=== PATIENT | female | born 1980 | race Caucasian/White ===

== ENCOUNTER 2021-06-23 09:42 | Outpatient (REF) | payer OTHER, SELFPAY ==
[2021-06-23 10:58] LABS: MANUAL DIFF FLAG NO
[2021-06-23 11:01] LABS: Basophils Percent Auto 1.1 % (0-2); Eosinophils Absolute Auto 0.1 X10*3/uL (0.0-0.4); Eosinophils Percent Auto 2.1 % (0-4); Hematocrit 25.8 % (37-47); Imm Gran Abs Auto 0.01 X10*3/uL (0.00-0.03); Imm Gran Pct Auto 0.3 % (0.0-0.4); Lymphocytes Absolute Auto 1.3 X10*3/uL (1.2-4.9); Lymphocytes Percent Auto 33.6 % (20-40); Mean Corpuscular HGB Conc 26.4 g/dl (31.0-35.0); Monocytes Absolute Auto 0.3 X10*3/uL (0.1-1.2); Monocytes Percent Auto 7.7 % (2-11); Neutrophils Absolute Auto 2.1 X10*3/uL (2.0-8.3); Neutrophils Percent Auto 55.2 % (45-73); Platelet Count 312 X10*3/uL (160-400); Red Blood Count 3.99 X10*6/uL (4.20-5.50); Red Cell Distribution Width 20.1 % (11.0-16.0); White Blood Count 3.8 X10*3/uL (4.8-10.8)
[2021-06-23 11:06] LABS: Mean Corpuscular Volume 64.7 fL (80-98)
[2021-06-23 11:16] LABS: Hemoglobin 6.8 g/dl (12.0-16.0)
[2021-06-23 11:59] LABS: Alanine Aminotransferase 13 U/L (0-31); Albumin Level 4.2 g/dL (3.5-5.0); Alkaline Phosphatase 50 U/L (39-117); Anion Gap 10 (12-20); Aspartate Amino Transferase 23 U/L (5-31); Bilirubin Total 0.3 mg/dL (0.0-1.0); Blood Urea Nitrogen 11 mg/dL (9-16); Calcium 9.1 mg/dL (8.4-10.2); Carbon Dioxide 24 mmol/L (22-29); Chloride 111 mmol/L (96-108); Cholesterol 149 mg/dL; Estimated Glomerular Filt Rate > 60; Glucose Fasting 85 mg/dL (60-99); HDL Cholesterol 64 mg/dL; LDL Cholesterol Calculated 75 mg/dl; Potassium 4.4 mmol/L (3.3-5.1); Sodium 141 mmol/L (135-145); Total Protein 6.8 g/dL (6.5-8.0); Triglycerides 54 mg/dL
== END 2021-06-23 09:43 | disposition home or self-care (01) ==
LOC: HO.MANLDS 09:42
PROVIDERS: PCP Physician Assistant; Visit Provider Physician Assistant
DX: Z00.00 Encounter for general adult medical examination without abnormal findings (principal)
CPT/HCPCS: 36415; 80053; 80061; 85025

== ENCOUNTER 2021-06-23 14:12 | Emergency (ER) | payer OTHER, SELFPAY ==
--- NOTE | 2021-06-23 15:29 | ED.RECABL ---
HPI - Recheck/Abnormal Lab/Rx General Chief Complaint: General Medical Stated Complaint: low blood count Time Seen by Provider: 06/23/21 15:28 Source: patient Mode of arrival: ambulatory Limitations: no limitations History of Present Illness HPI narrative: patient denies symptoms, still gets her periods 5 days no heavy bleeding. No bleeding in stool, stool not black. 9 years ago she was anemic and was placed on iron but she is no longer taking iron. Symptoms since prior visit: no new symptoms Related Data Previous Rx's Medication Instructions Recorded ferrous sulfate 325 mg (65 mg 325 mg PO DAILY #30 tab 06/23/21 iron) tablet,delayed release folic acid 1 mg tablet 1 mg PO DAILY #30 tab 06/23/21 Allergies Allergy/AdvReac Type Severity Reaction Status Date / Time No Known Allergies Allergy Verified 06/23/21 15:36 Review of Systems Constitutional: Constitutional: Reports no additional constitutional complaints Eyes: Eyes: Reports no additional eye complaints ENT: Denies dizziness Cardiovascular: Cardiovascular: Reports no additional cardiovascular complaints Respiratory: Respiratory: Reports as per HPI Gastrointestinal: Gastrointestinal: Reports no additional gastrointestinal complaints Genitourinary: Genitourinary: Reports no additional female genitourinary complaints Musculoskeletal: Musculoskeletal: Reports no additional musculoskeletal complaints Integumentary/Breasts: Skin/Breast: Denies rash Neurologic: Reports system reviewed and no additional complaints, except as documented, Denies dizziness and Denies Sensory deficit (Neuro) Psychiatric: Psychiatric: Denies anxiety [facility] Social History Social History Advance Directives: No Advance Directives Information Provided: No Patient : No Physical Exam Vital Signs: Vital Signs: Last Vital Signs Temp 98.0 F 06/23/21 16:41 Pulse 80 06/23/21 16:41 Resp 18 06/23/21 16:41 BP 124/53 L 06/23/21 16:41 Pulse Ox 100 06/23/21 16:41 Body Mass Index 22.1 Const: General: healthy appearing Nutritional Appearance: average body habitus Orientation/consciousness: oriented to person and patient oriented x3 Limitations: no limitations HENMT: Head: Yes normal to inspection Ears: external ears normal General nose exam: Normal external nose present Mouth: Normal oral and palatal mucosa present and oropharynx normal Throat: Yes posterior oropharynx normal Eyes: General: appearance normal, both eyes and all related structures Neck: Other: supple Neck: Yes normal visual inspection Chest: Chest palpation & inspection: normal inspection of the chest Resp: Auscultation: clear to auscultation bilaterally Cardio: Jugular venous distension: no JVD Rate: regular rate Rhythm: regular rhythm Heart sounds: S1 normal heart sound present and S2 normal heart sound present GI: Inspection: Yes normal to inspection Palpation (GI): Soft to palpation, nontender and No hepatosplenomegaly present Auscultation: normal bowel sounds : Other: rectal heme negative General: Yes no CVA tenderness Back/Spine/Pelvis: Back: no CVA tenderness Skin: Other: pale conjunctiva, well perfused nailbeds General skin exam: no rashes or lesions noted Neuro: General: oriented to person and patient oriented x3 Cranial nerves: Yes CN's II-XII intact bilaterally Motor exam (neuro): 5/5 motor strength present throughout Sensory Exam: No Sensory deficit (Neuro) Extrem: General: Yes normal to inspection Psych: Appearance: grossly normal Course Reevaluation(s) Reevaluation #1: patient looking well, no active GI bleed, likely to have iron deficiency anemia secondary to diet, will dc on iron and folic acid. Patient is completely compensated and not orthostatic. Awaiting repeat blood count Time: 16:38 Discharge Plan Discharge Clinical Impression: Anemia Qualifiers: Anemia type: unspecified type Qualified Code(s): D64.9 - Anemia, unspecified Patient Disposition: Home, Self-Care Instructions: Anemia (ED) Prescriptions: New folic acid 1 mg tablet 1 mg PO DAILY Qty: 30 RF: 0 ferrous sulfate 325 mg (65 mg iron) tablet,delayed release (DR/EC) 325 mg PO DAILY Qty: 30 RF: 0 Referrals: Renetta Oliva PA [Primary Care Provider] - 5 days
[2021-06-23 16:41] VITALS: BP 124/53; PULSE 80; RESP 18; TEMP 36.7; O2SAT 100; BMI 22.1
[2021-06-23 17:04] LABS: MANUAL DIFF FLAG NO
[2021-06-23 17:11] LABS: Basophils Percent Auto 0.8 % (0-2); Eosinophils Absolute Auto 0.1 X10*3/uL (0.0-0.4); Hematocrit 26.2 % (37-47); Imm Gran Abs Auto 0.02 X10*3/uL (0.00-0.03); Imm Gran Pct Auto 0.4 % (0.0-0.4); Lymphocytes Absolute Auto 0.7 X10*3/uL (1.2-4.9); Lymphocytes Percent Auto 14.3 % (20-40); Mean Corpuscular Hemoglobin 16.7 pg (27.0-33.0); Mean Platelet Volume 10.1 fL (9.4-12.3); Monocytes Absolute Auto 0.2 X10*3/uL (0.1-1.2); Monocytes Percent Auto 4.4 % (2-11); Neutrophils Absolute Auto 3.8 X10*3/uL (2.0-8.3); Neutrophils Percent Auto 79.1 % (45-73); Platelet Count 337 X10*3/uL (160-400); Red Blood Count 4.07 X10*6/uL (4.20-5.50); White Blood Count 4.8 X10*3/uL (4.8-10.8)
[2021-06-23 17:18] LABS: Mean Corpuscular Volume 64.4 fL (80-98)
[2021-06-23 17:20] LABS: Hemoglobin 6.8 g/dl (12.0-16.0)
--- NOTE | 2021-06-25 08:31 | MHC.CM.ED ---
Late entry from 06/24/21: received fax request for consult; upon review, pt had already left the ED: no indication from notes re: need for CM consult.
== END 2021-06-23 17:50 | disposition home or self-care (01) ==
PROVIDERS: Emergency Provider Emergency Medicine; PCP Physician Assistant
DX: D64.9 Anemia, unspecified (principal); Z79.899 Other long term (current) drug therapy
CPT/HCPCS: 36415; 85025; 99283; 99284

== ENCOUNTER 2021-07-18 07:43 | Outpatient (REF) | payer OTHER, SELFPAY ==
[2021-07-18 09:28] LABS: Hematocrit 29.4 % (37.0-47.0); Hemoglobin 7.7 g/dl (12.0-16.0); Mean Corpuscular HGB Conc 26.2 g/dl (31.0-35.0); Mean Corpuscular Hemoglobin 17.9 pg (27.0-33.0); Mean Corpuscular Volume 68.4 fL (80.0-98.0); Mean Platelet Volume 10.5 fL (9.4-12.3); NRBC Pct Auto 0.3 /100WBC (0.0-0.2); Platelet Count 295 X10*3/uL (160-400); Red Cell Distribution Width 24.3 % (11.0-16.0); White Blood Count 5.8 X10*3/uL (4.8-10.8)
== END 2021-07-18 07:44 | disposition home or self-care (01) ==
LOC: HO.MDS 07:43
PROVIDERS: PCP Physician Assistant; Visit Provider Internal Medicine
DX: D50.9 Iron deficiency anemia, unspecified (principal)
CPT/HCPCS: 36415; 85027; 96374; 96375; J1200; J1750

== ENCOUNTER 2021-09-22 08:50 | Outpatient (REF) | payer OTHER, SELFPAY ==
[2021-09-22 11:40] LABS: Hematocrit 42.6 % (37.0-47.0); Mean Corpuscular HGB Conc 30.8 g/dl (31.0-35.0); Mean Corpuscular Hemoglobin 26.6 pg (27.0-33.0); Mean Corpuscular Volume 86.4 fL (80.0-98.0); Mean Platelet Volume 10.2 fL (9.4-12.3); Platelet Count 268 X10*3/uL (160-400); Red Blood Count 4.93 X10*6/uL (4.20-5.50); Red Cell Distribution Width 22.7 % (11.0-16.0); White Blood Count 4.6 X10*3/uL (4.8-10.8)
[2021-09-22 11:54] LABS: Iron 186 mcg/dL (30-160); Percent Iron Saturation 56 % (15-50); Total Iron Binding Capacity 331 mcg/dL (228-428); Unsaturated Iron Binding 145 ug/dL
[2021-09-22 11:56] LABS: Hemoglobin 13.1 g/dl (12.0-16.0)
[2021-09-22 12:18] LABS: Ferritin 44 ng/mL (10-250)
== END 2021-09-22 08:51 | disposition home or self-care (01) ==
LOC: HO.MANLDS 08:50
PROVIDERS: PCP Internal Medicine; Visit Provider Internal Medicine
DX: D50.8 Other iron deficiency anemias (principal)
CPT/HCPCS: 36415; 82728; 83540; 85027

== ENCOUNTER 2021-10-30 08:51 | Outpatient (REF) | payer OTHER, SELFPAY ==
[2021-10-30 11:10] LABS: Hematocrit 43.6 % (37.0-47.0); Hemoglobin 14.1 g/dl (12.0-16.0); Mean Corpuscular HGB Conc 32.3 g/dl (31.0-35.0); Mean Corpuscular Volume 89.5 fL (80.0-98.0); Mean Platelet Volume 10.5 fL (9.4-12.3); Platelet Count 247 X10*3/uL (160-400); Red Blood Count 4.87 X10*6/uL (4.20-5.50); Red Cell Distribution Width 16.3 % (11.0-16.0); White Blood Count 4.1 X10*3/uL (4.8-10.8)
[2021-10-30 11:23] LABS: Iron 44 mcg/dL (30-160); Percent Iron Saturation 12 % (15-50); Total Iron Binding Capacity 380 mcg/dL (228-428); Unsaturated Iron Binding 336 ug/dL
[2021-10-30 11:46] LABS: Ferritin 8 ng/mL (10-250)
== END 2021-10-30 08:52 | disposition home or self-care (01) ==
LOC: HO.MANLDS 08:51
PROVIDERS: PCP Internal Medicine; Visit Provider Internal Medicine
DX: D50.8 Other iron deficiency anemias (principal)
CPT/HCPCS: 36415; 82728; 83540; 85027

== ENCOUNTER 2021-12-05 07:54 | Outpatient (REF) | payer OTHER, SELFPAY ==
[2021-12-05 11:32] LABS: Hemoglobin 14.4 g/dl (12.0-16.0); Mean Corpuscular HGB Conc 32.7 g/dl (31.0-35.0); Mean Corpuscular Hemoglobin 30.5 pg (27.0-33.0); Mean Corpuscular Volume 93.2 fL (80.0-98.0); Mean Platelet Volume 10.8 fL (9.4-12.3); Platelet Count 248 X10*3/uL (160-400); Red Blood Count 4.72 X10*6/uL (4.20-5.50); Red Cell Distribution Width 14.6 % (11.0-16.0); White Blood Count 4.3 X10*3/uL (4.8-10.8)
[2021-12-05 11:42] LABS: Iron 173 mcg/dL (30-160); Percent Iron Saturation 57 % (15-50); Total Iron Binding Capacity 305 mcg/dL (228-428); Unsaturated Iron Binding 132 ug/dL
[2021-12-05 12:03] LABS: Ferritin 46 ng/mL (10-250)
== END 2021-12-05 07:55 | disposition home or self-care (01) ==
LOC: HO.MANLDS 07:54
PROVIDERS: PCP Internal Medicine; Visit Provider Internal Medicine
DX: D50.8 Other iron deficiency anemias (principal)
CPT/HCPCS: 36415; 82728; 83540; 85027

== ENCOUNTER 2021-12-11 12:11 | Outpatient (REF) | payer OTHER, SELFPAY ==
[2021-12-11 13:24] LABS: MANUAL DIFF FLAG NO
[2021-12-11 13:28] LABS: Basophils Percent Auto 0.9 % (0-2); Eosinophils Absolute Auto 0.1 X10*3/uL (0.0-0.4); Eosinophils Percent Auto 1.9 % (0-4); Hematocrit 41.8 % (37.0-47.0); Imm Gran Abs Auto 0.01 X10*3/uL (0.00-0.03); Imm Gran Pct Auto 0.2 % (0.0-0.4); Lymphocytes Absolute Auto 1.3 X10*3/uL (1.2-4.9); Lymphocytes Percent Auto 31.2 % (20-40); Mean Corpuscular HGB Conc 33.5 g/dl (31.0-35.0); Mean Corpuscular Hemoglobin 31.7 pg (27.0-33.0); Mean Corpuscular Volume 94.6 fL (80.0-98.0); Mean Platelet Volume 10.6 fL (9.4-12.3); Monocytes Absolute Auto 0.3 X10*3/uL (0.1-1.2); Neutrophils Absolute Auto 2.5 x10*3/uL (2.0-8.3); Neutrophils Percent Auto 58.8 % (45-73); Platelet Count 276 X10*3/uL (160-400); Red Blood Count 4.42 X10*6/uL (4.20-5.50); Red Cell Distribution Width 14.1 % (11.0-16.0); White Blood Count 4.3 X10*3/uL (4.8-10.8)
[2021-12-11 13:55] LABS: Alanine Aminotransferase 17 U/L (0-31); Albumin Level 4.4 g/dL (3.5-5.0); Alkaline Phosphatase 54 U/L (39-117); Anion Gap 15 (12-20); Aspartate Amino Transferase 25 U/L (5-31); Bilirubin Total 0.6 mg/dL (0.0-1.0); Blood Urea Nitrogen 11 mg/dL (9-16); Calcium 9.7 mg/dL (8.4-10.2); Carbon Dioxide 25 mmol/L (22-29); Chloride 106 mmol/L (96-108); Estimated Glomerular Filt Rate > 60; Glucose Random 87 mg/dL (60-115); Iron 168 mcg/dL (30-160); Percent Iron Saturation 54 % (15-50); Potassium 4.5 mmol/L (3.3-5.1); Sodium 141 mmol/L (135-145); Total Iron Binding Capacity 311 mcg/dL (228-428); Total Protein 7.1 g/dL (6.5-8.0); Unsaturated Iron Binding 143 ug/dL
[2021-12-11 14:20] LABS: Ferritin 59 ng/mL (10-250); Thyroid Stimulating Hormone 2.77 uIU/mL (0.32-4.0)
[2021-12-11 14:57] LABS: Vitamin B12 354 pg/mL (200-900)
[2021-12-13 06:12] LABS: Immunoglobulin E 3 kU/L (<OR=114)
== END 2021-12-11 12:12 | disposition home or self-care (01) ==
LOC: HO.MANLDS 12:11
PROVIDERS: PCP Internal Medicine; Visit Provider Internal Medicine
DX: D50.8 Other iron deficiency anemias (principal); T78.2XXD Anaphylactic shock, unspecified, subsequent encounter
CPT/HCPCS: 36415; 80053; 82607; 82728; 82785; 83540; 84443; 85025

== ENCOUNTER 2022-01-19 13:30 | Outpatient (REF) | payer OTHER, SELFPAY ==
[2022-01-19 20:02] LABS: Hematocrit 41.7 % (37.0-47.0); Hemoglobin 13.7 g/dl (12.0-16.0); Mean Corpuscular HGB Conc 32.9 g/dl (31.0-35.0); Mean Corpuscular Hemoglobin 32.2 pg (27.0-33.0); Mean Corpuscular Volume 97.9 fL (80.0-98.0); Mean Platelet Volume 11.1 fL (9.4-12.3); Platelet Count 236 X10*3/uL (160-400); Red Blood Count 4.26 X10*6/uL (4.20-5.50); Red Cell Distribution Width 13.4 % (11.0-16.0); White Blood Count 4.6 X10*3/uL (4.8-10.8)
[2022-01-19 20:15] LABS: Iron 63 mcg/dL (30-160); Percent Iron Saturation 23 % (15-50); Total Iron Binding Capacity 272 mcg/dL (228-428); Unsaturated Iron Binding 209 ug/dL
[2022-01-19 20:36] LABS: Ferritin 90 ng/mL (10-250)
== END 2022-01-19 13:31 | disposition home or self-care (01) ==
LOC: HO.MANLDS 13:30
PROVIDERS: PCP Internal Medicine; Visit Provider Internal Medicine
DX: D50.8 Other iron deficiency anemias (principal)
CPT/HCPCS: 36415; 82728; 83540; 85027

== ENCOUNTER 2022-02-23 07:37 | Outpatient (REF) | payer OTHER, SELFPAY ==
[2022-02-23 11:12] LABS: MANUAL DIFF FLAG NO
[2022-02-23 11:17] LABS: Basophils Percent Auto 0.8 % (0-2); Eosinophils Absolute Auto 0.1 X10*3/uL (0.0-0.4); Eosinophils Percent Auto 1.5 % (0-4); Hematocrit 42.6 % (37.0-47.0); Hemoglobin 14.6 g/dl (12.0-16.0); Imm Gran Abs Auto 0.01 X10*3/uL (0.00-0.03); Imm Gran Pct Auto 0.2 % (0.0-0.4); Lymphocytes Absolute Auto 1.3 X10*3/uL (1.2-4.9); Lymphocytes Percent Auto 25.3 % (20-40); Mean Corpuscular HGB Conc 34.3 g/dl (31.0-35.0); Mean Corpuscular Hemoglobin 32.4 pg (27.0-33.0); Mean Corpuscular Volume 94.7 fL (80.0-98.0); Mean Platelet Volume 10.3 fL (9.4-12.3); Monocytes Absolute Auto 0.5 X10*3/uL (0.1-1.2); Monocytes Percent Auto 9.2 % (2-11); Neutrophils Absolute Auto 3.3 x10*3/uL (2.0-8.3); Platelet Count 234 X10*3/uL (160-400); Red Cell Distribution Width 12.3 % (11.0-16.0); White Blood Count 5.3 X10*3/uL (4.8-10.8)
[2022-02-23 11:41] LABS: Iron 140 mcg/dL (30-160); Percent Iron Saturation 53 % (15-50); Total Iron Binding Capacity 265 mcg/dL (228-428); Unsaturated Iron Binding 125 ug/dL
[2022-02-23 11:52] LABS: Ferritin 129 ng/mL (10-250)
[2022-02-23 12:00] LABS: Free T4 (Free Thyroxine) 0.92 ng/dL (0.71-1.85); Thyroid Stimulating Hormone 2.85 uIU/mL (0.32-4.0)
== END 2022-02-23 07:38 | disposition home or self-care (01) ==
LOC: HO.MANLDS 07:37
PROVIDERS: Dermatology; Visit Provider Internal Medicine
DX: D50.8 Other iron deficiency anemias (principal); D22.5 Melanocytic nevi of trunk; L65.0 Telogen effluvium; L57.8 Other skin changes due to chronic exposure to nonionizing radiation; L73.8 Other specified follicular disorders
CPT/HCPCS: 36415; 82728; 83540; 84439; 84443; 85025

== ENCOUNTER 2022-03-23 13:32 | Outpatient (REF) | payer OTHER, SELFPAY ==
[2022-03-23 18:06] LABS: MANUAL DIFF FLAG NO
[2022-03-23 18:12] LABS: Basophils Percent Auto 0.7 % (0-2); Eosinophils Absolute Auto 0.1 X10*3/uL (0.0-0.4); Eosinophils Percent Auto 1.4 % (0-4); Hemoglobin 14.4 g/dl (12.0-16.0); Imm Gran Abs Auto 0.01 X10*3/uL (0.00-0.03); Imm Gran Pct Auto 0.2 % (0.0-0.4); Lymphocytes Absolute Auto 1.7 X10*3/uL (1.2-4.9); Lymphocytes Percent Auto 29.1 % (20-40); Mean Corpuscular HGB Conc 33.5 g/dl (31.0-35.0); Mean Corpuscular Hemoglobin 32.4 pg (27.0-33.0); Mean Corpuscular Volume 96.6 fL (80.0-98.0); Mean Platelet Volume 10.5 fL (9.4-12.3); Monocytes Absolute Auto 0.4 X10*3/uL (0.1-1.2); Monocytes Percent Auto 6.1 % (2-11); Neutrophils Absolute Auto 3.7 x10*3/uL (2.0-8.3); Neutrophils Percent Auto 62.5 % (45-73); Platelet Count 249 X10*3/uL (160-400); Red Blood Count 4.45 X10*6/uL (4.20-5.50); Red Cell Distribution Width 12.4 % (11.0-16.0); White Blood Count 5.9 X10*3/uL (4.8-10.8)
[2022-03-23 18:30] LABS: Iron 114 mcg/dL (30-160); Percent Iron Saturation 43 % (15-50); Total Iron Binding Capacity 267 mcg/dL (228-428); Unsaturated Iron Binding 153 ug/dL
[2022-03-23 18:50] LABS: Ferritin 171 ng/mL (10-250)
== END 2022-03-23 13:33 | disposition home or self-care (01) ==
LOC: HO.MANLDS 13:32
PROVIDERS: Visit Provider Internal Medicine
DX: D50.8 Other iron deficiency anemias (principal)
CPT/HCPCS: 36415; 82728; 83540; 85025

== ENCOUNTER 2022-04-20 14:00 | Outpatient (REF) | payer OTHER, SELFPAY ==
[2022-04-20 18:14] LABS: MANUAL DIFF FLAG NO
[2022-04-20 18:16] LABS: Basophils Percent Auto 0.6 % (0-2); Eosinophils Absolute Auto 0.1 X10*3/uL (0.0-0.4); Eosinophils Percent Auto 1.1 % (0-4); Hematocrit 40.4 % (37.0-47.0); Imm Gran Abs Auto 0.02 X10*3/uL (0.00-0.03); Imm Gran Pct Auto 0.3 % (0.0-0.4); Lymphocytes Absolute Auto 1.3 X10*3/uL (1.2-4.9); Mean Corpuscular HGB Conc 34.7 g/dl (31.0-35.0); Mean Corpuscular Hemoglobin 32.9 pg (27.0-33.0); Mean Corpuscular Volume 94.8 fL (80.0-98.0); Mean Platelet Volume 10.6 fL (9.4-12.3); Monocytes Absolute Auto 0.5 X10*3/uL (0.1-1.2); Monocytes Percent Auto 7.1 % (2-11); Neutrophils Absolute Auto 4.7 x10*3/uL (2.0-8.3); Neutrophils Percent Auto 71.9 % (45-73); Platelet Count 263 X10*3/uL (160-400); Red Blood Count 4.26 X10*6/uL (4.20-5.50); Red Cell Distribution Width 12.4 % (11.0-16.0); White Blood Count 6.6 X10*3/uL (4.8-10.8)
[2022-04-20 18:31] LABS: Iron 93 mcg/dL (30-160); Percent Iron Saturation 35 % (15-50); Total Iron Binding Capacity 263 mcg/dL (228-428); Unsaturated Iron Binding 170 ug/dL
[2022-04-20 18:52] LABS: Ferritin 186 ng/mL (10-250)
== END 2022-04-20 14:01 | disposition home or self-care (01) ==
LOC: HO.MANLDS 14:00
PROVIDERS: Visit Provider Internal Medicine
DX: D50.8 Other iron deficiency anemias (principal)
CPT/HCPCS: 36415; 82728; 83540; 85025

== ENCOUNTER 2022-06-01 08:36 | Outpatient (REF) | payer OTHER, SELFPAY ==
[2022-06-01 11:00] LABS: MANUAL DIFF FLAG NO
[2022-06-01 11:29] LABS: Basophils Absolute Auto 0.1 X10*3/uL (0.0-0.2); Basophils Percent Auto 0.9 % (0-2); Eosinophils Absolute Auto 0.1 X10*3/uL (0.0-0.4); Eosinophils Percent Auto 0.8 % (0-4); Hemoglobin 14.4 g/dl (12.0-16.0); Imm Gran Abs Auto 0.02 X10*3/uL (0.00-0.03); Imm Gran Pct Auto 0.3 % (0.0-0.4); Lymphocytes Absolute Auto 1.3 X10*3/uL (1.2-4.9); Lymphocytes Percent Auto 20.4 % (20-40); Mean Corpuscular HGB Conc 33.5 g/dl (31.0-35.0); Mean Corpuscular Hemoglobin 31.9 pg (27.0-33.0); Mean Corpuscular Volume 95.1 fL (80.0-98.0); Mean Platelet Volume 10.3 fL (9.4-12.3); Monocytes Absolute Auto 0.5 X10*3/uL (0.1-1.2); Neutrophils Absolute Auto 4.5 x10*3/uL (2.0-8.3); Neutrophils Percent Auto 70.6 % (45-73); Platelet Count 278 X10*3/uL (160-400); Red Blood Count 4.52 X10*6/uL (4.20-5.50); Red Cell Distribution Width 12.2 % (11.0-16.0); White Blood Count 6.4 X10*3/uL (4.8-10.8)
[2022-06-01 11:53] LABS: Iron 207 mcg/dL (30-160); Percent Iron Saturation 78 % (15-50); Total Iron Binding Capacity 267 mcg/dL (228-428); Unsaturated Iron Binding 60 ug/dL
[2022-06-01 12:06] LABS: Ferritin 197 ng/mL (10-250)
== END 2022-06-01 08:37 | disposition home or self-care (01) ==
LOC: HO.MANLDS 08:36
PROVIDERS: Visit Provider Internal Medicine
DX: D50.8 Other iron deficiency anemias (principal)
CPT/HCPCS: 36415; 82728; 83540; 85025

== ENCOUNTER 2022-06-20 07:56 | Outpatient (REF) | payer OTHER, SELFPAY ==
[2022-06-20 11:27] LABS: MANUAL DIFF FLAG NO
[2022-06-20 11:38] LABS: Basophils Absolute Auto 0.1 X10*3/uL (0.0-0.2); Basophils Percent Auto 1.5 % (0-2); Eosinophils Absolute Auto 0.1 X10*3/uL (0.0-0.4); Hematocrit 43.1 % (37.0-47.0); Hemoglobin 14.4 g/dl (12.0-16.0); Imm Gran Abs Auto 0.02 X10*3/uL (0.00-0.03); Imm Gran Pct Auto 0.5 % (0.0-0.4); Lymphocytes Absolute Auto 1.3 X10*3/uL (1.2-4.9); Lymphocytes Percent Auto 33.1 % (20-40); Mean Corpuscular HGB Conc 33.4 g/dl (31.0-35.0); Mean Corpuscular Hemoglobin 32.5 pg (27.0-33.0); Mean Corpuscular Volume 97.3 fL (80.0-98.0); Mean Platelet Volume 10.8 fL (9.4-12.3); Monocytes Absolute Auto 0.3 X10*3/uL (0.1-1.2); Monocytes Percent Auto 7.2 % (2-11); Neutrophils Absolute Auto 2.2 x10*3/uL (2.0-8.3); Neutrophils Percent Auto 55.7 % (45-73); Platelet Count 264 X10*3/uL (160-400); Red Blood Count 4.43 X10*6/uL (4.20-5.50); Red Cell Distribution Width 12.2 % (11.0-16.0)
[2022-06-20 12:44] LABS: Iron 201 mcg/dL (30-160); Percent Iron Saturation 78 % (15-50); Total Iron Binding Capacity 257 mcg/dL (228-428); Unsaturated Iron Binding 56 ug/dL
[2022-06-20 12:48] LABS: Ferritin 202 ng/mL (10-250)
== END 2022-06-20 07:57 | disposition home or self-care (01) ==
LOC: HO.MANLDS 07:56
PROVIDERS: Visit Provider Internal Medicine
DX: D50.8 Other iron deficiency anemias (principal)
CPT/HCPCS: 36415; 82728; 83540; 85025

== ENCOUNTER 2022-08-07 07:39 | Outpatient (REF) | payer OTHER, SELFPAY | END 2022-08-07 07:40 | disposition home or self-care (01) | LOC: HO.MANLDS 07:39 | PROVIDERS: Visit Provider Internal Medicine | DX: Z13.89 Encounter for screening for other disorder (principal) ==

== ENCOUNTER 2022-10-12 07:39 | Outpatient (REF) | payer OTHER, SELFPAY ==
[2022-10-12 11:35] LABS: MANUAL DIFF FLAG NO
[2022-10-12 11:52] LABS: Basophils Percent Auto 0.9 % (0-2); Eosinophils Absolute Auto 0.1 X10*3/uL (0.0-0.4); Eosinophils Percent Auto 1.7 % (0-4); Hematocrit 42.1 % (37.0-47.0); Imm Gran Abs Auto 0.02 X10*3/uL (0.00-0.03); Imm Gran Pct Auto 0.4 % (0.0-0.4); Lymphocytes Absolute Auto 1.1 X10*3/uL (1.2-4.9); Lymphocytes Percent Auto 22.4 % (20-40); Mean Corpuscular HGB Conc 33.3 g/dl (31.0-35.0); Mean Corpuscular Hemoglobin 31.3 pg (27.0-33.0); Mean Corpuscular Volume 94.2 fL (80.0-98.0); Mean Platelet Volume 10.4 fL (9.4-12.3); Monocytes Absolute Auto 0.4 X10*3/uL (0.1-1.2); Monocytes Percent Auto 8.5 % (2-11); Neutrophils Absolute Auto 3.1 x10*3/uL (2.0-8.3); Neutrophils Percent Auto 66.1 % (45-73); Platelet Count 260 X10*3/uL (160-400); Red Blood Count 4.47 X10*6/uL (4.20-5.50); Red Cell Distribution Width 12.1 % (11.0-16.0); White Blood Count 4.7 X10*3/uL (4.8-10.8)
[2022-10-12 12:38] LABS: Iron 110 mcg/dL (30-160); Percent Iron Saturation 46 % (15-50); Total Iron Binding Capacity 239 mcg/dL (228-428); Unsaturated Iron Binding 129 ug/dL
[2022-10-12 13:03] LABS: Ferritin 87 ng/mL (10-250); Folate 5.1 ng/mL (> or = 4.0); Vitamin B12 412 pg/mL (200-900)
== END 2022-10-12 07:40 | disposition home or self-care (01) ==
LOC: HO.MANLDS 07:39
PROVIDERS: Visit Provider Internal Medicine
DX: D50.8 Other iron deficiency anemias (principal)
CPT/HCPCS: 36415; 82607; 82728; 82746; 83540; 85025

== ENCOUNTER 2023-04-05 07:39 | Outpatient (REF) | payer OTHER, SELFPAY ==
[2023-04-05 13:14] LABS: MANUAL DIFF FLAG NO
[2023-04-05 13:31] LABS: Eosinophils Absolute Auto 0.1 X10*3/uL (0.0-0.4); Eosinophils Percent Auto 2.7 % (0-4); Hematocrit 43.7 % (37.0-47.0); Hemoglobin 14.4 g/dl (12.0-16.0); Imm Gran Abs Auto 0.01 X10*3/uL (0.00-0.03); Imm Gran Pct Auto 0.2 % (0.0-0.4); Lymphocytes Absolute Auto 1.4 X10*3/uL (1.2-4.9); Lymphocytes Percent Auto 34.7 % (20-40); Mean Platelet Volume 10.8 fL (9.4-12.3); Monocytes Absolute Auto 0.3 X10*3/uL (0.1-1.2); Monocytes Percent Auto 7.8 % (2-11); Neutrophils Absolute Auto 2.2 x10*3/uL (2.0-8.3); Neutrophils Percent Auto 53.6 % (45-73); Platelet Count 255 X10*3/uL (160-400); Red Blood Count 4.65 X10*6/uL (4.20-5.50); Red Cell Distribution Width 12.6 % (11.0-16.0); White Blood Count 4.1 X10*3/uL (4.8-10.8)
[2023-04-05 15:14] LABS: Ferritin 41 ng/mL (10-250); Iron 116 mcg/dL (30-160); Percent Iron Saturation 40 % (15-50); Total Iron Binding Capacity 290 mcg/dL (228-428); Unsaturated Iron Binding 174 ug/dL
[2023-04-05 15:25] LABS: Folate 5.5 ng/mL (> or = 4.0); Vitamin B12 402 pg/mL (200-900)
== END 2023-04-05 07:40 | disposition home or self-care (01) ==
LOC: HO.MANLDS 07:39
PROVIDERS: Visit Provider Internal Medicine
DX: D64.9 Anemia, unspecified (principal)
CPT/HCPCS: 36415; 82607; 82728; 82746; 83540; 85025

== ENCOUNTER 2023-08-28 09:06 | Outpatient (REF) | payer OTHER, SELFPAY ==
[2023-08-28 13:23] LABS: MANUAL DIFF FLAG NO
[2023-08-28 13:50] LABS: Basophils Percent Auto 0.8 % (0-2); Eosinophils Percent Auto 0.8 % (0-4); Hemoglobin 13.8 g/dl (12.0-16.0); Imm Gran Abs Auto 0.01 X10*3/uL (0.00-0.03); Imm Gran Pct Auto 0.2 % (0.0-0.4); Lymphocytes Absolute Auto 1.4 X10*3/uL (1.2-4.9); Lymphocytes Percent Auto 29.1 % (20-40); Mean Corpuscular HGB Conc 32.9 g/dl (31.0-35.0); Mean Corpuscular Hemoglobin 30.7 pg (27.0-33.0); Mean Corpuscular Volume 93.3 fL (80.0-98.0); Mean Platelet Volume 10.7 fL (9.4-12.3); Monocytes Absolute Auto 0.4 X10*3/uL (0.1-1.2); Monocytes Percent Auto 8.5 % (2-11); Neutrophils Absolute Auto 2.9 x10*3/uL (2.0-8.3); Neutrophils Percent Auto 60.6 % (45-73); Platelet Count 262 X10*3/uL (160-400); Red Cell Distribution Width 13.1 % (11.0-16.0); White Blood Count 4.7 X10*3/uL (4.8-10.8)
[2023-08-28 16:57] LABS: Iron 175 mcg/dL (30-160); Percent Iron Saturation 69 % (15-50); Total Iron Binding Capacity 252 mcg/dL (228-428); Unsaturated Iron Binding 77 ug/dL
[2023-08-28 17:04] LABS: Ferritin 37 ng/mL (10-250)
== END 2023-08-28 09:07 | disposition home or self-care (01) ==
LOC: HO.MANLDS 09:06
PROVIDERS: Visit Provider Internal Medicine
DX: D64.9 Anemia, unspecified (principal)
CPT/HCPCS: 36415; 82728; 83540; 85025

== ENCOUNTER 2024-03-03 15:38 | Outpatient (REF) | payer OTHER, SELFPAY ==
[2024-03-03 18:11] LABS: MANUAL DIFF FLAG NO
[2024-03-03 18:28] LABS: Basophils Percent Auto 0.7 % (0-2); Eosinophils Absolute Auto 0.1 X10*3/uL (0.0-0.4); Eosinophils Percent Auto 0.9 % (0-4); Hematocrit 41.5 % (37.0-47.0); Hemoglobin 14.4 g/dl (12.0-16.0); Imm Gran Abs Auto 0.02 X10*3/uL (0.00-0.03); Imm Gran Pct Auto 0.3 % (0.0-0.4); Lymphocytes Absolute Auto 1.4 X10*3/uL (1.2-4.9); Lymphocytes Percent Auto 23.6 % (20-40); Mean Corpuscular HGB Conc 34.7 g/dl (31.0-35.0); Mean Corpuscular Hemoglobin 31.9 pg (27.0-33.0); Mean Platelet Volume 10.3 fL (9.4-12.3); Monocytes Absolute Auto 0.5 X10*3/uL (0.1-1.2); Monocytes Percent Auto 8.6 % (2-11); Neutrophils Absolute Auto 3.8 x10*3/uL (2.0-8.3); Neutrophils Percent Auto 65.9 % (45-73); Platelet Count 300 X10*3/uL (160-400); Red Blood Count 4.51 X10*6/uL (4.20-5.50); Red Cell Distribution Width 12.5 % (11.0-16.0); White Blood Count 5.8 X10*3/uL (4.8-10.8)
[2024-03-03 18:35] LABS: Iron 70 mcg/dL (30-160); Percent Iron Saturation 30 % (15-50); Total Iron Binding Capacity 233 mcg/dL (228-428); Unsaturated Iron Binding 163 ug/dL
[2024-03-03 18:45] LABS: Ferritin 82 ng/mL (10-250)
== END 2024-03-03 15:39 | disposition home or self-care (01) ==
LOC: HO.MANLDS 15:38
PROVIDERS: Visit Provider Internal Medicine
DX: D64.9 Anemia, unspecified (principal)
CPT/HCPCS: 36415; 82728; 83540; 85025

== ENCOUNTER 2025-02-05 13:58 | Outpatient (REF) | payer OTHER, SELFPAY ==
--- OUTSIDE RECORDS SUMMARY | 2025-02-05 14:00 | XMS_ITS | Data Portability ---
Author Organization [facility], Telehealth Patient Home Address [address] [place] [address] Assessment Encounter Date Assessment Date Assessment LastModified by Organization Details LastModified Time 04/19/2023 04/19/2023 [id number] [place] [id number] (REFRACTORY MIXER) : EDEL LOW MUST MEET 2 OF 3 ELEMENTS: PROBLEMS, DATA OR RISK ELEMENT 1: PROBLEMS ADDRESSED (LOW): 2 OR MORE SELF-LIMITED OR MINOR PROBLEMS OR 1 STABLE CHRONIC ILLNESS OR 1 ACUTE UNCOMPLICATED ILLNESS OR INJURY ELEMENT 2: DATA TO BE REVISED AND ANALYZED (LOW) MUST MEET 1 OF 2 CATEGORIES: CATEGORY 1. REVIEW OF PRIOR EXTERNAL NOTES/RESULTS, ORDERING OF TEST(S) CATEGORY 2. ASSESSMENT REQUIRING INDEPENDENT HISTORIAN(S) INCLUDE WHO THE HISTORIAN IS AND RELATION TO PT AND WHY PT IS UNABLE TO GIVE COMPLETE HISTORY ELEMENT 3: RISK (LOW) RISK OF COMPLICATIONS AND/OR MORBIDITY OR MORTALITY OF PATIENT MANAGEMENT PROVIDER MUST THOROUGHLY DOCUMENT ALL OF THE ELEMENTS COVERED Not available 04/19/2023 13:57:04 09/09/2023 09/09/2023 [id number] [place] [id number] (REFRACTORY MIXER) : [facility] LOW MUST MEET 2 OF 3 ELEMENTS: PROBLEMS, DATA OR RISK ELEMENT 1: PROBLEMS ADDRESSED (LOW): 2 OR MORE SELF-LIMITED OR MINOR PROBLEMS OR 1 STABLE CHRONIC ILLNESS OR 1 ACUTE UNCOMPLICATED ILLNESS OR INJURY ELEMENT 2: DATA TO BE REVISED AND ANALYZED (LOW) MUST MEET 1 OF 2 CATEGORIES: CATEGORY 1. REVIEW OF PRIOR EXTERNAL NOTES/RESULTS, ORDERING OF TEST(S) CATEGORY 2. ASSESSMENT REQUIRING INDEPENDENT HISTORIAN(S) INCLUDE WHO THE HISTORIAN IS AND RELATION TO PT AND WHY PT IS UNABLE TO GIVE COMPLETE HISTORY ELEMENT 3: RISK (LOW) RISK OF COMPLICATIONS AND/OR MORBIDITY OR MORTALITY OF PATIENT MANAGEMENT PROVIDER MUST THOROUGHLY DOCUMENT ALL OF THE ELEMENTS COVERED Not available 09/09/2023 15:39:00 03/13/2024 03/13/2024 mammo. pap, Not available 13:47:13 08/19/2024 08/19/2024 [id number] [place] [id number] (REFRACTORY MIXER) : [facility] LOW MUST MEET 2 OF 3 ELEMENTS: PROBLEMS, DATA OR RISK ELEMENT 1: PROBLEMS ADDRESSED (LOW): 2 OR MORE SELF-LIMITED OR MINOR PROBLEMS OR 1 STABLE CHRONIC ILLNESS OR 1 ACUTE UNCOMPLICATED ILLNESS OR INJURY ELEMENT 2: DATA TO BE REVISED AND ANALYZED (LOW) MUST MEET 1 OF 2 CATEGORIES: CATEGORY 1. REVIEW OF PRIOR EXTERNAL NOTES/RESULTS, ORDERING OF TEST(S) CATEGORY 2. ASSESSMENT REQUIRING INDEPENDENT HISTORIAN(S) INCLUDE WHO THE HISTORIAN IS AND RELATION TO PT AND WHY PT IS UNABLE TO GIVE COMPLETE HISTORY ELEMENT 3: RISK (LOW) RISK OF COMPLICATIONS AND/OR MORBIDITY OR MORTALITY OF PATIENT MANAGEMENT PROVIDER MUST THOROUGHLY DOCUMENT ALL OF THE ELEMENTS COVERED Not available 08/19/2024 16:43:28 12/08/2024 12/08/2024 [id number] [place] [id number] (REFRACTORY MIXER) MDM MODERATE MUST MEET 2 OUT OF 3 ELEMENTS: PROBLEMS, DATA OR RISK ELEMENT 1: PROBLEMS ADDRESSED 1 OR MORE CHRONIC ILLNESS WITH EXACERBATION OR 2 OR MORE STABLE CHRONIC ILLNESSES OR 1 UNDIAGNOSED NEW PROBLEM OR 1 ACUTE ILLNESS W/SYMPTOMS OR 1 ACUTE COMPLICATED INJURY ELEMENT 2: DATA MUST MEET 1 OF 3 CATEGORIES CATEGORY 1: REVIEW OF PRIOR EXTERNAL NOTES, REVIEW OF RESULTS, ORDERING OF EACH TEST, ASSESSMENT REQUIRING INDEPENDENT HISTORIAN OR CATEGORY 2: INDEPENDENT INTERPRETATION OF TESTS BY ANOTHER PHYSICIAN OR SPECIALIST OR CATEGORY 3: DISCUSSION OF MGT OR TEST INTERPRETATION W/EXTERNAL PHYSICIAN OR SPECIALIST ELEMENT 3: RISK RISK OF COMPLICATIONS AND/OR MORBIDITY OR MORTALITY OF PATIENT MANAGEMENT PROVIDER MUST THOROUGHLY DOCUMENT EACH ELEMENT THAT IS COVERED Not available 12/08/2024 16:39:36 Plan of Treatment Reminders Order Date Submit Date Provider Last Modified By Organization Details Last Modified Time Details Appointments FOLLOW UP 2024 04:15P M DR HIGGINS Not available Not available Not available FOLLOW UP 2024 04:15P M DR HIGGINS Not available Not available Not available Lab vitamin D, 25-hydrox y, total, serum 2024 025 [facility], [address] [place] [address], [id number], 12/08/2024 16:42:55 iron + TIBC + ferritin, serum 2024 025 [facility], [address] [place] [address], [address], 12/08/2024 16:42:55 CBC 2024 025 [facility], [address] [place] [address], [address], 12/08/2024 16:42:55 iron + TIBC + ferritin, serum 2023 024 [facility], [place], [address], 08/19/2024 16:46:15 CBC 2023 024 [facility], [place], [address], 12/02/2024 13:59:55 vitamin D, 25-hydrox y, total, serum 2023 024 [facility], [place], [address], 12/02/2024 14:17:58 CMP, serum or plasma 2023 024 [facility], [place], [address], 08/19/2024 16:46:15 iron + TIBC + ferritin, serum 2022 023 [facility], [address] [place] [address], [address], 08/29/2023 17:04:37 CBC 2022 023 [facility], [address] [place] [address] [place], [address], 04/19/2023 13:58:25 Referral None recorded. Procedures None recorded. Surgeries None recorded. Imaging None recorded. Medication Orders epinephri ne 0.3 mg/0.3 mL injection , auto-inje ctor 2022 023 [id number], [address] [place], [address], 04/19/2023 13:55:54 Patient TargetsNo targets recorded. Patient Instructions Encounter Date Encounter Id Patient Instructions Last Modified By Organization Details Last Modified Time 08/19/2024 [id number] anemia: care instructions Not available 08/19/2024 16:44:56 Reason for Referral None Reported. Results Created Date Observation Date Name Description Value Unit Range Abnormal Flag Note LastModifiedBy Organization Detail LastModifiedTime Result Notes None recorded. Problems Name Problem SNOMED Code Status Onset Date Resolution Date Notes Provider Name and Address Organization Details Recorded Time Iron deficien cy 24304299 Completed 202007/03/2021 Martín Higgins DO [address] [place] [address], [phone], [facility] 5 16:46:14 Iron deficien cy anemia 45970245 Completed 202006/04/2022 Removal Reason: resolved with iron supp Martín Higgins DO [address] [place] [address], [phone], [facility] 2 21:47:44 Anaphyla xis 83155677 Active 2021 Martín Higgins DO [address] [place] [address], [address], [facility] 2 12:04:31 Anemia 035686755 Active 2022 Martín Higgins DO [address] [place] [address], [phone], [facility] 3 22:24:34 Vitamin D deficien cy 91013173 Active 2024 Martín Higgins DO [address] [place], [address], [facility] 5 16:39:43 Iron deficien cy 78689184 Active 2024 Martín Higgins DO [address] [place], [address], [facility] 5 16:46:14 Problem Notes None recorded. Medical Equipment None Reported. Allergies Allergen ID Allergen Name Allergen Category Reaction Reaction Severity Criticality Documentation Date Start Date Code Code System Note Provider Name and Address Organization Details Recorded Time 4397 nickel environme nt Not available Not available Not available 12/05/2020 38125 29 RxNorm Martín Higgins DO [address] [place] [address], [phone], [facility] 1 15:16:16 5657 iron medicatio n anaphylax is severe Not available 12/11/2021 55571 RxNorm Martín Higgins, [address] [place] [address], [phone], [facility] 2 11:56:54 Medications Name Sig Start Date Stop Date Status Note LastModified by Organization Details LastModified Time ferrous sulfate 325 mg (65 mg iron) tablet TAKE 1 TABLET BY MOUTH EVERY DAY 2024 active Not Available Not Available Not Avai lable folic acid 1 mg tablet TAKE 1 TABLET BY MOUTH EVERY DAY 08/19 completed Not Available Not Available Not Available epinephrine 0.3 mg/0.3 mL injection, auto-inject or Take 1 auto as needed by injection route as needed for 1 day. 2022 active Not Available Not Available Not Avai lable cyclobenzap rine 5 mg tablet Take 1 tablet 3 times a day by oral route for 30 days. 12/11 completed Not Available Not Available Not Available Vitals Date Recorded Body height Body mass index (BMI) Body weight Heart rate Oxygen saturation Oxygen saturation in Arterial blood by Pulse oximetry Systolic blood pressure Diastolic blood pressure Provider Name and Address Organization Details Last Updated DateTime 5 160.02 cm 21.1 kg/m2 88134.4 9 g 65 /min 99 % 99 % 110 mm[Hg] 74 mm[Hg] Neyda Tapia [facility] 5 16:13:18 Date Recorded Body height Body mass index (BMI) Body weight Heart rate Oxygen saturation Oxygen saturation in Arterial blood by Pulse oximetry Systolic blood pressure Diastolic blood pressure Provider Name and Address Organization Details Last Updated DateTime 4 160.02 cm 21.1 kg/m2 86695.4 9 g 57 /min 98 % 98 % 120 mm[Hg] 72 mm[Hg] Neyda Tapia [facility] 4 13:27:48 Date Recorded Body height Body mass index (BMI) Body weight Heart rate Oxygen saturation Oxygen saturation in Arterial blood by Pulse oximetry Systolic blood pressure Diastolic blood pressure Provider Name and Address Organization Details Last Updated DateTime 3 160.02 cm 22 kg/m2 15512.4 5 g 88 /min 98 % 98 % 110 mm[Hg] 80 mm[Hg] Neyda Tapia [facility] 3 13:24:43 Date Recorded Body height Body mass index (BMI) Body weight Heart rate Oxygen saturation Oxygen saturation in Arterial blood by Pulse oximetry Systolic blood pressure Diastolic blood pressure Provider Name and Address Organization Details Last Updated DateTime 4 160.02 cm 21.1 kg/m2 83684.4 9 g 54 /min 98 % 98 % 104 mm[Hg] 62 mm[Hg] Jaime Zuluaga [facility] 4 16:10:00 Social History Question Answer Notes LastModified by Organizat ion Details LastModified Time Tobacco Smoking Status Never Smoker Martín Higgins, DO [address] [place] [address], [place], [address], [facility] 12/05/2020 15:16:26 What Was The Date Of Your Most Recent Tobacco Screening? 12/08/2024 [email or web address] Information not available 12/08/2024 Sex: Unknown Functional Status Question Answer Note LastModified by Organization D etails LastModified Time Do you or have you ever used any other forms of tobacco or nicotine? No [email or web address] Information not available 04/19/2023 Mental Status None recorded. Family History Nothing Reported. Medical History No medical history recorded. Gynecological HistoryNo gynecological history recorded. Obstetrics History GPAL:G 0 P 0 0 0 0 Immunizations Vaccine Type Date Status Note Provider Nam e and Address Organization Details Recorded Time COVID-19, mRNA, LNP-S, PF, 100 mcg/0.5mL dose or 50 mcg/0.25mL dose 11/29/2020 completed Jessica doherty [facility] 05/19/2021 14:07:42 COVID-19, mRNA, LNP-S, PF, 100 mcg/0.5mL dose or 50 mcg/0.25mL dose 12/27/2020 completed Jessica doherty [facility] 05/19/2021 14:07:54 Past Encounters Encounter ID Performer Location Encounter Start Date Encounter Closed Date Diagnosis/Indication Diagnosis SNOMED-CT Code Diagnosis ICD10 Code Diagnosis Note [id number] Martín Higgins [address],[place] [address] 12/05/2020 14:35:46 12/05/2020 15:49:10 Tick bite 50491167 W57.XXXA [id number] Martín Higgins [address] [address] 06/23/2021 09:15:52 06/23/2021 15:02:45 Active or passive immunization 043384976 Z23 advised Adult heal th examination 948974864 Z00.00 BP excellent Gynecologi c examination 54791544 Z01.419 needs referral Thoracic back pain 56977 8004 M54.6 MSK tightness from old injury [id number] Martín Higgins [facility] [address], [place] [address] 07/03/2021 11:09:25 07/04/2021 10:21:00 Iron deficiency anemia 39103154 D50.8 will fu with her hematologi st for infusions and [place] [id number] Martín Higgins [facility] [address] [place] [address] 09/12/2021 09:11:51 09/12/2021 15:48:34 Iron deficiency anemia 25224886 D50.8 after much discussion we determined that since she was not able to get the iron infusion we will need to monitor more closely her anemia standing orders written and she will get follow up lab next week and call for results COVID-19 621142355 U07.1 disucssed conserv treatment at length and quarantine protocols etcpt understand s to call if issue [id number] Martín Higgins [facility] [address] [facility] [place] [place] [facility] [place] [address] 12/11/2021 11:12:45 12/11/2021 12:28:26 Iron deficiency anemia 16256273 D50.8 after much discussion we determined that since she was not able to get the iron infusion we will need to monitor more closely her anemia standing orders written and she will get follow up lab next week and call for results Anaphylaxis 81820830 T78 .2XXD [id number] Martín Higgins [facility] [address] [facility], [address] [facility] [place] [address] 04/19/2023 13:17:21 04/19/2023 14:19:13 Anemia 896631682 D64.9 stable right nowbut noted to have a low ferritinso we will have her restart the iron but only take mwf and we will rechk lab in a few months History of anaphylaxis 3880592666 1247516 Z87.892 [id number] Martín Higgins [facility] [address] [facility] [address],[place] [address] 09/09/2023 08:41:21 09/10/2023 07:59:10 Anemia 000995008 D64.9 stable right nowbut noted to have a low ferritin but now is in normal range with normal cbcso we will have her restart the iron but only take mwf and we will rechk lab in a few months [id number] Martín Higgins [facility] [address] [facility],[place] [address] 03/13/2024 13:18:46 03/13/2024 15:42:33 Depression screening 092532696 Z13.31 stable Anemia 123263366 D64.9 doing much better and is doing okferritin is better and the iron is goodcbc is nlwill recheck levels in the fall and see her in aug [id number] Martín Higgins [facility] [address] [facility],L[address] [facility] [place] [address] 08/19/2024 16:01:22 08/19/2024 16:47:59 Anemia 422040066 D64.9 doing much better and is doing okferritin is better and the iron is goodcbc is nlwill recheck levels in the fall and see her in aug [id number] Martín Higgins [facility] [address] [facility] [place] [address] 12/08/2024 16:04:25 12/08/2024 16:52:05 Anemia 058532245 D64.9 doing much better and is doing okferritin is better and the iron is goodcbc is nlwill recheck levels in the fall and see her in aug Depression screening 171 365134 Z13.31 stable Vitamin D deficiency 347 99877 E55.9 she is down to 22 will improve with supp and rechk Iron deficiency 58109711 E61.1 will cont supp at 3 x week Health Concerns Section Related Observation LastModified by Organization Detai ls LastModified Time None Recorded Concern Status LastModified by Organization Details LastModified Time None Recorded Advance Directives Directive None Recorded Payers Encounter Date Sequence Insurance Name Policy Number Policy Weathers Covered Member ID Weathers Member ID Guarantor Name 04/19/2023 1 [facility] [id number] Maria Guadalupe Gaonazekendal [id number] Maria Guadalupe Mccall 09/09/2023 1 [facility] [id number] Maria Guadalupe Gaonazek [id number] Maria Guadalupe Mccall 03/13/2024 1 [facility] [id number] Maria Guadalupe Gaonazekendal [id number] Maria Guadalupe Mccall 08/19/2024 1 [facility] [id number] Maria Guadalupe Gaonazekendal [id number] Maria Guadalupe Bretmaheshkendal 12/08/[address] [place] [address] [id number] Maria Guadalupe Mccall [id number] Maria Guadalupe Mccall Notes Date Note Type Note Provider Name a nd Address Organization Details Recorded Time 04/19/2023 text/html had been doing w ell overall until she has eaten fried foods which caused the diarrheahas been fine since stoppinghad eaten some chain store food and this caused GI upsetthen noted to have increased bladder freq and spoke to online dr alysa glez and they prescribed her nitrofurantoin and is feeling better also had been working on a metal fence and developed onset of a rash we know she has an allergy for nickel so this is prob the culprit rash all gone now after stopped revieewed lab in detail showing low ferritin but nl serum iron Martín Schulte DO [facility] [address] [place] [address], [phone], [facility] 04/19/2023 13:57:55 09/09/2023 text/html patient is evaluated via tele/video assessment per patient consent during current pandemicfollow up appt for iron def anemiarelates her menses have lightened up Martín Higgins DO [address] [place] [address], [phone], [facility] 09/09/2023 15:40:50 03/13/2024 text/html her for rechk naye d is doing ok her e for follow up on lab Martín Higgins DO [address] [place] [address], [address], [facility] 03/13/2024 13:55:27 08/19/2024 text/html here for rechk Martín Higgins DO [address] [place], [address], [facility] 08/19/2024 16:45:57 12/08/2024 text/html AnemiaReported bypatient.Timing:be tter Associated Symptoms:no shortness of breath; no chest pain; no abdominal pain; no nausea; no vomiting; no melena; no blood in stool; no weakness; no fatigue; no palpitations; no excessive sweating; normal nails; tolerant of cold; no nonfood cravings; no behavior problems; no symptoms of peripheral neuropathy; normal balance; no jaundice; no pallor; no weight loss here for bia Higgins, DO [address] [facility], [place], [address], [facility] 12/08/2024 16:47:30 OBGyn Episode No OBEpisode recorded.
[2025-02-05 19:23] LABS: Vitamin D 25-OH Total 75.1 ng/mL (>30)
== END 2025-02-05 13:59 | disposition home or self-care (01) ==
LOC: HO.MANLDS 13:58
PROVIDERS: Visit Provider Internal Medicine
DX: E55.9 Vitamin D deficiency, unspecified (principal)
CPT/HCPCS: 36415; 82306

== ENCOUNTER 2025-05-14 10:01 | Outpatient (REF) | payer OTHER, SELFPAY ==
[2025-05-14 13:17] LABS: MANUAL DIFF FLAG NO
[2025-05-14 13:37] LABS: Hematocrit 41.7 % (37.0-47.0); Hemoglobin 14.6 g/dl (12.0-16.0); Imm Gran Abs Auto 0.01 X10*3/uL (0.00-0.03); Imm Gran Pct Auto 0.2 % (0.0-0.4); Lymphocytes Absolute Auto 1.5 X10*3/uL (1.2-4.9); Mean Corpuscular HGB Conc 35.0 g/dl (31.0-35.0); Mean Corpuscular Hemoglobin 31.6 pg (27.0-33.0); Mean Corpuscular Volume 90.3 fL (80.0-98.0); NRBC Abs Auto 0.000 X10*3/uL (0.0-0.012); NRBC Pct Auto 0.0 /100WBC (0.0-0.2); Platelet Count 287 X10*3/uL (160-400); Red Blood Count 4.62 X10*6/uL (4.20-5.50); White Blood Count 4.8 X10*3/uL (4.8-10.8)
[2025-05-14 14:20] LABS: Ferritin 155 ng/mL (10-250); Iron 147 mcg/dL (30-160); Percent Iron Saturation 62 % (15-50); Total Iron Binding Capacity 238 mcg/dL (228-428); Unsaturated Iron Binding 91 ug/dL
== END 2025-05-14 10:02 | disposition home or self-care (01) ==
LOC: HO.MANLDS 10:01
PROVIDERS: Visit Provider Internal Medicine
DX: D64.9 Anemia, unspecified (principal); E55.9 Vitamin D deficiency, unspecified
CPT/HCPCS: 36415; 82306; 82728; 83540; 85025